=== PATIENT | female | born 1995 | race African-American/Black ===

== ENCOUNTER → 2019-07-19 16:54 | Outpatient (CLI) | payer BC, SELFPAY ==
[2019-07-19 18:10] LABS: Basophils # 0.1 K/mm3 (0-0.2); Basophils % 0.7 % (0.1-2.0); Eosinophils # 0.1 K/mm3 (0.0-0.4); Eosinophils % 1.6 % (0.1-12.0); Hematocrit 41.4 % (37.0-47.0); Hemoglobin 12.7 g/dL (12.2-16.2); Lymphocytes # 2.5 K/mm3 (0.7-4.5); Lymphocytes % 40.1 % (10-50); Mean Corpuscular HGB Conc 30.7 g/dL (31.8-35.4); Mean Corpuscular Hemoglobin 25.4 pg (27.0-31.2); Mean Corpuscular Volume 82.7 fl (81-99); Mean Platelet Volume 9.6 fl (7.4-10.4); Monocytes # 0.2 K/mm3 (0.1-1.0); Monocytes % 3.5 % (1.7-9.3); Neutrophils # 3.4 K/mm3 (1.8-7.8); Neutrophils % 54.1 % (37.0-80.0); Platelet Count 274 K/mm3 (142-424); Red Blood Count 5.01 M/mm3 (4.20-5.40); White Blood Count 6.3 K/mm3 (4.8-10.8)
[2019-07-19 18:57] LABS: Alanine Aminotransferase 16 U/L (9-52); Albumin Level 3.5 g/dL (3.4-5.0); Alkaline Phosphatase 70 U/L (46-116); Anion Gap 13.9 mEq/L (5-15); Aspartate Amino Transferase 16 U/L (15-37); Bilirubin,Total 0.2 mg/dL (0.2-1.0); Blood Urea Nitrogen 14 mg/dL (7-18); Calcium 9.1 mg/dL (8.5-10.1); Carbon Dioxide 26 mmol/L (21.0-32.0); Chloride 107 mmol/L (98-107); Chol/HDL Ratio 2.6 (1-3.5); Cholesterol 110 mg/dL (140-200); Creatinine,Serum 0.75 mg/dL (0.55-1.02); Estimated Glomerular Filt Rate 97 ml/min (>60); GFR (African American) 117 ML/MIN (>60); Globulin 3.6 gm/dl (1.3-3.2); Glucose 98 mg/dL (74-106); HDL Cholesterol 42 mg/dL (29-89); LDL Cholesterol 58 mg/dL (0-130); Potassium 3.9 mmoL/L (3.5-5.1); Sodium 143 mmol/L (137-145); T4 (Thyroxine) 6.9 ug/dl (4.7-13.3); Thyroid Stimulating Hormone 0.68 uIU/ml (0.358-3.740); Total Protein,Serum 7.1 g/dL (6.4-8.2); Triglycerides 48 mg/dL (30-200); VLDL Cholesterol 10 mg/dL (0-40)
[2019-07-21 10:28] LABS: Vitamin D 25 Hydroxy 10.3 ng/mL (30.0-100.0)
== END ==
PROVIDERS: Visit Provider Physician Assistant
DX: R63.5 Abnormal weight gain (principal); E55.9 Vitamin D deficiency, unspecified
CPT/HCPCS: 80053; 80061; 82652; 84436; 84443; 85025

== ENCOUNTER → 2019-12-28 15:24 | Outpatient (CLI) | payer BC, SELFPAY ==
[2019-12-30 14:44] LABS: Covid-19 Nasal PCR Sendout Lex Not Detected
== END ==
PROVIDERS: PCP Physician Assistant; Visit Provider Physician Assistant
DX: Z03.818 Encounter for observation for suspected exposure to other biological agents ruled out (principal)
CPT/HCPCS: U0004

== ENCOUNTER 2020-05-04 06:06 | Emergency (ER) | payer MEDICAID, SELFPAY ==
[2020-05-04 06:17] VITALS: BP 148/96; PULSE 64; RESP 18; TEMP 36.7; O2SAT 100; BMI 33.3
--- NOTE | 2020-05-04 06:26 | CT_ITS ---
PROCEDURE: CT ABDOMEN PELVIS W CON CLINICAL INDICATION: RUQ pain COMPARISON: No exams were available for comparison TECHNIQUE: IV Contrast: 75ML OPTIRAY 350 Oral Contrast none given Axial images obtained with sagittal and coronal reformats. All CT scans at the facility use one or more dose reduction, viz: automated exposure control, ma/kV adjustment per patient size (including targeted exams where dose is matched to indication, i.e. head), or iterative reconstruction technique. FINDINGS: Lower thorax: The lower lung wills are clear and there is no pleural fluid. There is mild generalized cardiomegaly. ABDOMEN: Liver: No masses or biliary dilatation. Gallbladder: The gallbladder is mildly distended and shows a slightly heterogenic appearance to the bile suggesting possible biliary sludge and or nonopaque stones. Consider follow-up ultrasound right upper quadrant for additional evaluation. Pancreas: No masses or peripancreatic fluid collections. Spleen: unremarkable Adrenals: unremarkable Kidneys/ureters: The kidneys are normal size and show symmetrical function both appearing normal. ABDOMEN & PELVIS: Stomach bowel: The stomach is moderately distended with ingested food particles and fluid but otherwise is normal. The small bowel is normal. The appendix is normal in caliber and partially air-filled. Moderate scattered stool and gas seen throughout the colon. There is a large amount stool in the rectum. Peritoneum: No abnormal fluid collections. No obvious inflammatory changes. No free air. Lymph nodes: No enlarged lymph nodes apparent. Vasculature: No evidence of abdominal aortic aneurysm. No retroperitoneal hemorrhage evident. Bones: No acute fracture PELVIS: Reproductive: The uterus is normal in size and in the midline. Bladder: Urinary bladder is partially decompressed, there is no free fluid in the pelvis. Appendix: Normal in caliber and partially air-filled. IMPRESSION: Somewhat abnormal appearing gallbladder suspect possibly nonopaque stones and biliary sludge and suggest follow-up ultrasound right upper quadrant. No other significant abdominal or pelvic pathology identified Dictated by: Dr. Mihir Figueroa MD 05/04/2020 09:23 Dr. Mihir Figueroa MD in [place] 05/04/2020 09:23
[2020-05-04 06:37] VITALS: BP 159/83; PULSE 68; O2SAT 99
[2020-05-04 06:40] LABS: Basophils # 0.1 K/mm3 (0-0.2); Basophils % 0.9 % (0.1-2.0); Eosinophils # 0.2 K/mm3 (0.0-0.4); Eosinophils % 2.9 % (0.1-12.0); Hemoglobin 14.1 g/dL (12.2-16.2); Lymphocytes # 3.2 K/mm3 (0.7-4.5); Lymphocytes % 50.3 % (10-50); Mean Corpuscular HGB Conc 31.4 g/dL (31.8-35.4); Mean Corpuscular Hemoglobin 25.7 pg (27.0-31.2); Mean Corpuscular Volume 81.8 fl (81-99); Mean Platelet Volume 8.6 fl (7.4-10.4); Monocytes # 0.3 K/mm3 (0.1-1.0); Monocytes % 4.3 % (1.7-9.3); Neutrophils # 2.6 K/mm3 (1.8-7.8); Neutrophils % 41.5 % (37.0-80.0); Platelet Count 303 K/mm3 (142-424); Red Cell Distribution Width 13.9 % (11.5-17.5); White Blood Count 6.3 K/mm3 (4.8-10.8)
[2020-05-04 06:42] LABS: MANUAL DIFFERENTIAL MANUAL DIFFERENTIAL (MANUAL DIFF)
[2020-05-04 06:45] LABS: Chloride 105 mmol/L (98-107); Potassium 3.6 mmoL/L (3.5-5.1); Sodium 142 mmol/L (136-145)
[2020-05-04 06:46] LABS: Microscopic, Urine URINE MICROSCOPIC (MICROSCOPIC)
[2020-05-04 06:47] LABS: Amylase 101 U/L (30-110)
[2020-05-04 06:48] LABS: Alanine Aminotransferase 22 U/L (12-78); Albumin Level 4.8 g/dl (3.5-5.0); Albumin/Globulin Ratio 1.2 (1.1-1.8); Alkaline Phosphatase 81 U/L (38-126); Anion Gap 13.6 mEq/L (5-15); Aspartate Amino Transferase 31 U/L (14-36); Bilirubin,Total 0.4 mg/dl (0.2-1.3); Blood Urea Nitrogen 16 mg/dl (7-17); Calcium 9.7 mg/dl (8.4-10.2); Carbon Dioxide 27 mmol/L (22.0-30.0); Creatinine Clearance Estimated 118 mL/min (50-200); Estimated Glomerular Filt Rate 69 ml/min (>60); GFR (African American) 83 ML/MIN (>60); Globulin 4.1 g/dL (1.3-3.2); Glucose 101 mg/dl (74-100); Lipase 100 U/L (23-300); Total Protein,Serum 8.9 g/dl (6.3-8.2)
[2020-05-04 06:50] LABS: Appearance,Urine CLEAR (Clear); Bilirubin,Urine Negative (Negative); Blood, Urine Negative (Negative); Color,Urine YELLOW (Yellow); Glucose,Urine (UA) Negative (Negative); Ketones,Urine Negative (Negative); Leukocyte Esterase,Urine Negative (Negative); Nitrate,Urine Negative (Negative); Protein,Urine Negative (Negative)
[2020-05-04 06:52] LABS: Urine Pregnancy, HCG Qual. Negative (Negative)
[2020-05-04 06:54] LABS: C-Reactive Protein 18.8 mg/L (0-4)
[2020-05-04 07:02] LABS: Squamous Epithelial Cell,Urine Occasional #/hpf (0-5)
--- NOTE | 2020-05-04 07:13 | HMH.EDNVD ---
ED Disposition Clinical Impression: COVID-19 virus IgG antibody detected, COVID-19 virus IgM antibody detected, Obesity (BMI 30.0-34.9) Abdominal pain Qualifiers: Abdominal location: right upper quadrant Qualified Code(s): R10.11 - Right upper quadrant pain Disposition: Home, Self-Care Condition on Discharge: Good Instructions: DI for Acute Abdomen Additional Instructions: discussed covid with pt and to call office thursday am Referrals: Megan Joy PA [Primary Care Provider] - - Critical Care Critical Care Time: No Attestation: On 05/04/20, the high probability of a clinically significant, sudden or life threatening deterioration of the following system(s) required my full and direct attention, intervention and personal management. The time I documented below is in addition to time spent performing reported procedures but includes the following listed in this critical care notation. Medical Decision Making - Medical Records Medical records reviewed: Yes: I reviewed the patient's medical records. - Nick Inquiry Pt receiving controlled substance: No Vital Signs: 05/04/20 06:17 05/04/20 06:37 05/04/20 07:41 Temperature 98.0 F Temperature Source Oral Pulse Rate [Right] 64 68 49 L Respiratory Rate 18 18 Blood Pressure [Right Arm] 148/96 H 159/83 H 139/71 Blood Pressure Mean [Right Arm] 113 108 93 Blood Pressure Source [Right Arm] Automatic Cuff Automatic Cuff Automatic Cuff Blood Pressure Position [Right Arm] Supine Supine Sitting 02 Sat by Pulse Oximetry 100 99 99 Oxygen Delivery Method Room Air Room Air - Lab Data Lab results reviewed: Yes: I reviewed the patient's lab results. Lab Results 05/04/20 06:15: Urine Color Yellow, Urine Appearance Clear, Urine pH 7.0, Ur Specific [place] 1.020, Urine Protein Negative, Urine Glucose (UA) Negative, Urine Ketones Negative, Urine Blood Negative, Urine Nitrate Negative, Urine Bilirubin Negative, Urine Urobilinogen 1.0, Ur Leukocyte Esterase Negative, Urine WBC 3-5, Ur Squamous Epith Cells Occasional 05/04/20 06:15: Urine HCG, Qual Negative 05/04/20 06:25: WBC 6.3, RBC 5.50 H, Hgb 14.1, Hct 45.0, MCV 81.8, MCH 25.7 L, MCHC 31.4 L, RDW 13.9, Plt Count 303, MPV 8.6, Neut % (Auto) 41.5, Lymph % (Auto) 50.3 H, [place] % (Auto) 4.3, Eos % (Auto) 2.9, Baso % (Auto) 0.9, Neut # (Auto) 2.6, Lymph # (Auto) 3.2, [place] # (Auto) 0.3, Eos # (Auto) 0.2, Baso # (Auto) 0.1, Total Counted 100, Neutrophils % (Manual) 54, Lymphocytes % (Manual) 40, Monocytes % (Manual) 6, Platelet Estimate Normal, RBC Morphology Normal, ESR 16 05/04/20 06:25: Sodium 142, Potassium 3.6, Chloride 105, Carbon Dioxide 27, Anion Gap 13.6, BUN 16, Creatinine 1.00, Estimated Creat Clear 118, Estimated GFR 69, Est GFR ( Amer) 83, Glucose 101 H, Calcium 9.7, Total Bilirubin 0.4, AST 31, ALT 22, Alkaline Phosphatase 81, C-Reactive Protein 18.8 H, Total Protein 8.9 H, Albumin 4.8, Globulin 4.1 H, Albumin/Globulin Ratio 1.2, Amylase 101, Lipase 100, Procalcitonin 0.032 05/04/20 06:25: SARS-CoV-2 IgG Ab (Rapid) Positive A, SARS-CoV-2 IgM Ab (Rapid) Positive A Result diagrams: 05/04/20 06:25 05/04/20 06:25 Orders (Tests/Meds): ED MEDICATIONS Generic Name Dose Route Start Last Admin Trade Name Freq PRN Reason Stop Dose Admin Sodium Chloride 8 ml 05/04/20 06:26 Sodium Chloride 0.9% 10ml Vial IV 06/03/20 06:25 NEEDED PRN dilute pepcid Discontinued Medications Generic Name Dose Route Start Last Admin Trade Name Freq PRN Reason Stop Dose Admin Dexamethasone Sodium Phosphate 10 mg 05/04/20 07:21 05/04/20 07:23 Dexamethasone 4mg/Ml 1ml Vial IV 05/04/20 07:22 10 mg ONCE ONE Administration Famotidine 20 mg 05/04/20 06:26 05/04/20 06:32 Famotidine 20mg/2ml Vial IV 05/04/20 06:27 20 mg ONCE ONE Administration Sodium Chloride 1,000 mls @ 999 mls/hr 05/04/20 06:30 05/04/20 06:33 Sod Chlor 0.9% 1000ml Bag IV 05/04/20 07:30 999 mls/hr .Q1H1M HUMZA
[2020-05-04 07:18] LABS: Coronavirus 19 IgG Antibody Positive (Negative); Coronavirus 19 IgM Antibody Positive (Negative)
--- NOTE | 2020-05-04 07:23 | XR_ITS ---
PROCEDURE: XR CHEST 2V CLINICAL HISTORY: IGM + COMPARISON: No exams were available for comparison FINDINGS: There is borderline generalized cardiomegaly. The lung wills are well expanded and appear clear of infiltrate. There is no pulmonary congestion there is no pleural fluid. Apparent metallic nipple jewelry bilaterally. IMPRESSION: Mild or borderline cardiomegaly, no acute chest pathology noted Dictated by: Dr. Mihir Figueroa MD 05/04/2020 07:52 Dr. Mihir Figueroa MD in [place] 05/04/2020 07:52
[2020-05-04 07:24] LABS: Procalcitonin 0.032 ng/mL (0.0-2.0)
[2020-05-04 07:26] LABS: Erythrocyte Sedimentation Rate 16 mm/hr (0-20)
[2020-05-04 07:30] LABS: Lymphocytes % 40 % (10-50); Monocytes % 6 % (2-9); Neutrophils % 54 % (42-76); Platelet Estimate Normal; RBC Morphology Normal; Total Cells Counted 100
[2020-05-04 07:41] VITALS: BP 139/71; PULSE 49; RESP 18; O2SAT 99
[2020-05-04 08:06] VITALS: BP 123/87; PULSE 85; RESP 12; TEMP 36.7; O2SAT 99
--- NOTE | 2020-05-04 13:43 | PC.NURSE ---
Attempted to call pt listed number 3 times with no answer, answering machine not available
--- NOTE | 2020-05-04 15:08 | PC.NURSE ---
Notified pt of her covid results
== END 2020-05-04 08:07 | disposition home or self-care (01) ==
PROVIDERS: Emergency Provider Emergency Medicine; PCP Physician Assistant
DX: U07.1 COVID-19 (principal); Z01.84 Encounter for antibody response examination
CPT/HCPCS: 36415; 71046; 74177; 80053; 81001; 81025; 82150; 83690; 84145; 85007; 85025; 85651; 86140; 86328; 96365; 96375; 99284; J2405; Q9967; U0003

== ENCOUNTER → 2021-09-30 09:10 | Outpatient (CLI) | payer BC, MEDICAID, SELFPAY ==
[2021-09-30 13:34] LABS: Basophils % 0.7 % (0.1-2.0); Eosinophils # 0.2 K/mm3 (0.0-0.4); Eosinophils % 3.2 % (0.1-12.0); Hematocrit 44.4 % (37.0-47.0); Hemoglobin 14.1 g/dL (12.2-16.2); Lymphocytes # 2.2 K/mm3 (0.7-4.5); Lymphocytes % 36.6 % (10-50); Mean Corpuscular HGB Conc 31.7 g/dL (31.8-35.4); Mean Corpuscular Hemoglobin 26.1 pg (27.0-31.2); Mean Corpuscular Volume 82.6 fl (81-99); Mean Platelet Volume 8.8 fl (7.4-10.4); Monocytes # 0.3 K/mm3 (0.1-1.0); Monocytes % 4.3 % (1.7-9.3); Neutrophils # 3.4 K/mm3 (1.8-7.8); Neutrophils % 55.2 % (37.0-80.0); Platelet Count 300 K/mm3 (142-424); Red Blood Count 5.38 M/mm3 (4.20-5.40); Red Cell Distribution Width 13.5 % (11.5-17.5); White Blood Count 6.1 K/mm3 (4.8-10.8)
[2021-09-30 13:48] LABS: Alanine Aminotransferase 15 U/L (12-78); Albumin Level 4.1 g/dl (3.5-5.0); Albumin/Globulin Ratio 1.3 (1.1-1.8); Alkaline Phosphatase 79 U/L (38-126); Anion Gap 9.1 mEq/L (5-15); Aspartate Amino Transferase 36 U/L (14-36); Bilirubin,Total 0.6 mg/dl (0.2-1.3); Blood Urea Nitrogen 14 mg/dl (7-17); Calcium 9.2 mg/dl (8.4-10.2); Carbon Dioxide 26 mmol/L (22.0-30.0); Chloride 107 mmol/L (98-107); Chol/HDL Ratio 2.6 (1-3.5); Cholesterol 144 mg/dl (140-200); Estimated Glomerular Filt Rate 122 ml/min (>60); GFR (African American) 147 ML/MIN (>60); Globulin 3.2 g/dL (1.3-3.2); Glucose 89 mg/dl (74-100); HDL Cholesterol 55 mg/dl (40-60); Potassium 4.1 mmoL/L (3.5-5.1); Sodium 138 mmol/L (136-145); Total Protein,Serum 7.3 g/dl (6.3-8.2); Triglycerides 44 mg/dl (30-150); VLDL Cholesterol 9 mg/dL (0-40)
[2021-09-30 14:03] LABS: 25-OH Vitamin D, Total 13.7 ng/mL (30-100)
[2021-09-30 14:18] LABS: Thyroid Stimulating Hormone 1.62 uIU/mL (0.465-4.68)
[2021-09-30 14:37] LABS: Vitamin B12 491 pg/mL (239-931)
== END ==
PROVIDERS: PCP Physician Assistant; Visit Provider Physician Assistant
DX: R63.5 Abnormal weight gain (principal); E55.9 Vitamin D deficiency, unspecified; R53.83 Other fatigue; Z68.35 Body mass index [BMI] 35.0-35.9, adult
CPT/HCPCS: 80053; 80061; 82306; 82607; 84443; 85025

== ENCOUNTER → 2021-11-26 08:43 | Outpatient (CLI) | payer BC, MEDICAID, SELFPAY ==
--- NOTE | 2021-11-26 08:43 | US_ITS ---
FINAL REPORT CLINICAL HISTORY: abdomen pain FINDINGS: Sonographic images of the right upper quadrant were obtained. The pancreas is partially obscured.The liver has an unremarkable appearance.The gallbladder demonstrates multiple gallstones. The gallbladder wall measures 2 mm and is normal.There is no evidence of biliary ductal dilatation.The common duct measures 2 mm. Limited images of the right kidney are unremarkable. IMPRESSION: Cholelithiasis. Reviewed, Interpreted and Dictated by Jese Ferrara III, MD Transcribed by Yahaira Moreno Authenticated and [facility]
== END ==
PROVIDERS: PCP Physician Assistant; Visit Provider Physician Assistant
DX: R10.11 Right upper quadrant pain (principal)
CPT/HCPCS: 76705

== ENCOUNTER → 2022-01-04 11:30 | Outpatient (CLI) | payer BC, MEDICAID, SELFPAY ==
[2022-01-04 14:05] LABS: Basophils # 0.1 K/mm3 (0-0.2); Basophils % 1.2 % (0.1-2.0); Eosinophils # 0.2 K/mm3 (0.0-0.4); Eosinophils % 2.9 % (0.1-12.0); Hematocrit 41.3 % (37.0-47.0); Hemoglobin 13.8 g/dL (12.2-16.2); Lymphocytes % 36.7 % (10-50); Mean Corpuscular HGB Conc 33.4 g/dL (31.8-35.4); Mean Corpuscular Hemoglobin 26.7 pg (27.0-31.2); Mean Corpuscular Volume 79.9 fl (81-99); Mean Platelet Volume 9.4 fl (7.4-10.4); Monocytes # 0.5 K/mm3 (0.1-1.0); Monocytes % 6.2 % (1.7-9.3); Neutrophils # 4.3 K/mm3 (1.8-7.8); Platelet Count 292 K/mm3 (142-424); Red Blood Count 5.17 M/mm3 (4.20-5.40); Red Cell Distribution Width 13.6 % (11.5-17.5); White Blood Count 8.1 K/mm3 (4.8-10.8)
[2022-01-04 14:25] LABS: Alanine Aminotransferase 16 U/L (12-78); Albumin/Globulin Ratio 1.3 (1.1-1.8); Alkaline Phosphatase 90 U/L (38-126); Anion Gap 10.9 mEq/L (5-15); Aspartate Amino Transferase 29 U/L (14-36); Bilirubin,Total 0.4 mg/dl (0.2-1.3); Blood Urea Nitrogen 14 mg/dl (7-17); Calcium 9.3 mg/dl (8.4-10.2); Carbon Dioxide 23 mmol/L (22.0-30.0); Chloride 108 mmol/L (98-107); Estimated Glomerular Filt Rate 102 ml/min (>60); GFR (African American) 123 ML/MIN (>60); Globulin 3.2 g/dL (1.3-3.2); Glucose 88 mg/dl (74-100); Potassium 3.9 mmoL/L (3.5-5.1); Sodium 138 mmol/L (136-145); Total Protein,Serum 7.2 g/dl (6.3-8.2)
== END ==
PROVIDERS: PCP Physician Assistant; Visit Provider Surgery
DX: Z01.812 Encounter for preprocedural laboratory examination (principal); Z20.822 Contact with and (suspected) exposure to COVID-19; K80.20 Calculus of gallbladder without cholecystitis without obstruction
CPT/HCPCS: 36415; 80053; 85025; C9803; U0003; U0005

== ENCOUNTER 2022-01-06 10:03 | Day surgery (SDC) | payer BC, MEDICAID, SELFPAY ==
[2022-01-02 13:07] VITALS: BMI 30.1
[2022-01-06] VITALS (10 sets, daily range): BP systolic 118–149; BP diastolic 75–102; PULSE 55–73; RESP 12–18; TEMP 36.1–43; O2SAT 93–98
[2022-01-06 10:25] LABS: Urine Pregnancy, HCG Qual. Negative (Negative)
--- NOTE | 2022-01-06 11:43 | HMH.ANESCL ---
[facility] Anesthesia Checklist - Patient Identification Patient Identification: Arm Band - Structural Data Admitted From: Home Planned Operative Procedure/s: melidaKarina beaver Consent for Planned Operative Procedure(s) Verified: Yes - NPO Status Verified Time NPO: 00:00 - Additional verifications Anesthesia Reactions: Yes (nausea) Hx Blood Transfusions: No Blood Transfusion Reaction: No - Airway Assessment C-Spine Mobility Assessed: Yes TMJ Mobility Assessed: Yes Dentition: Good Dentition - Neurological Assessment Hx Seizures: No Numbness or tingling in extremities: No - Anesthesia Plan Anesthesia Risk discussed: Yes Anesthesia Plan: Verified ASA Class: I Anesthesia Type: General [facility] History I have reviewed the patient's past medical history: Yes Medical History: Denies:: Cancer, Diabetes Mellitus Type 1, Diabetes Mellitus Type 2, Internal Pacemaker, MRSA, Seizures *Have you ever received a pneumonia vaccine?: No *Have you received a flu vaccine this season?: No Other Medical History: Denies: Blood Transfusion Reaction Anesthesia experience/problems:: None Laterality Cases: Bilateral: Tonsillectomy Other Surgeries: Yes: . No: Pacemaker Amputation: No Fractures: No - *Social History Last grade of school completed: High school graduate Smoking Status: Never smoker Alcohol Intake: current Alcohol Intake Frequency:: holidays/special occasions only Substance Use Type: denies use *Occupational Status:: employed Housing: house Household Members: children *Travel in the last 8 weeks: None Family Hx:: No significant family history
--- NOTE | 2022-01-06 11:45 | HMH.ANESCL ---
[facility] Anesthesia Checklist - Patient Identification Patient Identification: Arm Band - Structural Data Admitted From: Home Planned Operative Procedure/s: Josh beaver Consent for Planned Operative Procedure(s) Verified: Yes - NPO Status Verified Time NPO: 00:00 - Additional verifications Anesthesia Reactions: Yes (nausea) Hx Blood Transfusions: No Blood Transfusion Reaction: No - Airway Assessment C-Spine Mobility Assessed: Yes TMJ Mobility Assessed: Yes Dentition: Good Dentition - Neurological Assessment Level of Consciousness: Awake Hx Seizures: No Numbness or tingling in extremities: No - Anesthesia Plan Anesthesia Risk discussed: Yes Anesthesia Plan: Verified ASA Class: I Anesthesia Type: General [facility] History I have reviewed the patient's past medical history: Yes Medical History: Denies:: Cancer, Diabetes Mellitus Type 1, Diabetes Mellitus Type 2, Internal Pacemaker, MRSA, Seizures *Have you ever received a pneumonia vaccine?: No *Have you received a flu vaccine this season?: No Other Medical History: Denies: Blood Transfusion Reaction Anesthesia experience/problems:: None Laterality Cases: Bilateral: Tonsillectomy Other Surgeries: Yes: . No: Pacemaker Amputation: No Fractures: No - *Social History Last grade of school completed: High school graduate Smoking Status: Never smoker Alcohol Intake: current Alcohol Intake Frequency:: holidays/special occasions only Substance Use Type: denies use *Occupational Status:: employed Housing: house Household Members: children *Travel in the last 8 weeks: None Family Hx:: No significant family history
--- NOTE | 2022-01-06 12:20 | HMH.OPNOTE ---
Date of procedure: 01/06/22 Pre-op Diagnosis:: Symptomatic gallstones Post-op Diagnosis:: Same Procedure performed:: Laparoscopic cholecystectomy Surgeon:: Jese Unger MD BILINGUAL OFFICE ASSISTANT:: Loretta Garcia Anesthesia: GETKaran Estimated blood loss (mL): 15 Clinical Note:: Patient is a very pleasant 26-year-old female referred by Megan Joy for gallbladder. She states that she had first noticed some problems in April 2020 with symptoms consistent with biliary colic in hindsight. She also was diagnosed with COVID at that time. It was recommended she undergo gallbladder work-up. Ultimately she has had some additional attacks described as acute onset of diffuse abdominal pain. This does occasionally doubles her over. It seems to occur spontaneously and not necessarily related to eating. It now has occurred about every several days. She underwent gallbladder ultrasound which reveals numerous gallstones. She has normal common bile duct. 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 She was seen and examined in the office. Options were discussed. She wished to pursue cholecystectomy. Interestingly the patient had been under the impression in the preoperative area that she would undergo removal of the gallstones. It was explained to the patient that surgery involves movement of the gallstones and gallbladder. Operative findings:: She had a somewhat distended gallbladder with omental adhesions and numerous gallstones. There were adhesions of the duodenum to the neck of the gallbladder. Operative note:: Patient was taken to the operating room. She was positioned in a supine position. General anesthesia was induced via endotracheal tube. Abdomen was prepped and draped in the standard surgical fashion. Subumbilical skin incision was made and while performing abdominal wall lift Veress needle was inserted. CO2 pneumoperitoneum was achieved to 15 mmHg. 11 mm optical trocar was inserted at the umbilicus. Intraperitoneal contents were visualized. She was positioned in reverse Trendelenburg left side down. A couple of 5 mm trochars were inserted in the right upper abdomen. 10 mm trocar was inserted in the epigastrium. Gallbladder was identified and grasped and retracted anteriorly and superiorly over the dome of the liver. There were omental adhesions to the gallbladder which were taken down using blunt dissection. The duodenum was adherent to the gallbladder and this was carefully taken down using blunt dissection. Infundibulum/Laird's pouch of the gallbladder was retracted anterior laterally. Blunt dissection was carried out at the neck of the gallbladder bluntly incising the visceral peritoneum. The cystic duct and cystic artery were clearly identified and the critical view of safety. The cystic duct was isolated, multiply clipped, and sharply divided. Cystic artery was carefully coagulated with LIAT ultrasonic harmonic ty. Gallbladder was dissected free from the liver in a retrograde fashion using LIAT ultrasonic harmonic ty. Gallbladder was placed within an Endo Catch retrieval device and removed from the peritoneal cavity via the umbilical trocar site which required some extension of the fascial incision for delivery as there were multiple gallstones and the gallbladder was rather distended. Gallbladder fossa was inspected for hemostasis which was assured. Trochars were removed as CO2 pneumoperitoneum was evacuated. Fascia at the umbilicus was closed with several interrupted 0 Vicryl sutures. Local anesthetic was infiltrated in all incisions. Skin incisions were closed with 4 Monocryl in subcuticular fashion. Steri-Strips and dressings were applied. Condition: stable Disposition: PACU Specimens:: Gallbladder and contents Complications:: None immediately apparent
--- NOTE | 2022-01-06 12:36 | HMH.ANESI ---
[facility] Anesthesia Record Part I Intake, IV Amount: 900 Estimated blood loss (mL): 20 Urine output (mL): 0 Blood Pressure: 136/84 SaO2: 96 Pulse Rate: 70 Respiratory Rate: 13 Temperature: 98 F Patient is:: Drowsy Stable to PACU at:: 12:33
--- NOTE | 2022-01-06 17:17 | P.PN_ITS ---
[facility] Anesthesia Record Part II Discharge Time: 13:03 Destination: Home PACU nurse assessment reviewed?: Yes Patient Condition:: Good Anesthesia Complications:: None Swallowing reflex intact?: Yes Cyanosis?: No Blood Pressure: 133/77 Pulse Rate: 66 Temperature: 97.0 F Mental Status: Alert & Oriented Pain level:: 0 Nausea and/or vomitting:: None Intake, IV Amount: 0
== END 2022-01-06 13:33 | disposition home or self-care (01) ==
LOC: OR 10:04
PROVIDERS: PCP Physician Assistant; Visit Provider Surgery
PROC: 0FT44ZZ Resection of Gallbladder, Percutaneous Endoscopic Approach (ICD-10-PCS; CPT 47562; principal; 2022-01-06 11:30)
DX: Z79.899 Other long term (current) drug therapy; K80.20 Calculus of gallbladder without cholecystitis without obstruction
CPT/HCPCS: 47562; 81025; 96374; J0131; J2405

== ENCOUNTER 2022-04-10 16:26 | Emergency (ER) | payer BC, MEDICAID, SELFPAY ==
[2022-04-10 17:30] VITALS: BP 127/95; PULSE 90; RESP 20; TEMP 37.5; O2SAT 100; BMI 27.8
[2022-04-10 17:36] LABS: UTC Influenza A Antigen Negative (Negative); UTC Influenza B Antigen Negative (Negative)
--- NOTE | 2022-04-10 17:52 | EXP.UTC ---
Discharge Plan Disposition Patient Disposition: Home, Self-Care Condition: Good Prescriptions Prescriptions: No Action phentermine [Adipex-P] 37.5 mg tablet 37.5 mg PO DAILY Rx Instructions: must administer 30 minutes before or 1-2 hours after breakfast Referrals Follow up/Referrals: Megan Joy PA [Primary Care Provider] - See instructions Activity Restrictions/Add. Instructions Additional Instructions/Restrictions: *Monitor Temp, Over the counter Motrin or Tylenol as directed/as needed Tylenol every 4 hours and Motrin every 6 hours (as long as your family doctor has told you that you can take it) for fever or pain. and straight to ER if unable to lower temp less than 101.0 after medication given *Warm salt water gargles may help to soothe the throat *Throat Lozenges? *Warm fluids like tea with honey may help to soothe the throat? *Sleep elevated *Humidifier/Vaporizer Over the counter cough and cold medication like theraflu may help with nasal congestion Follow up IMMEDIATELY for new or worsening symptoms or no Noticeable improvement over the next 48-72 hours. 911 for difficulty breathing or swallowing Clinical Impressions Clinical Impression: Viral upper respiratory tract infection Instructions Patient Instructions: DI for Viral Upper Respiratory Infection -- Adult Discharge ED Provider: Batsheva Mars [facility] General Stated complaint: TESTED FOR THE FLU AND COVID Mode of Arrival: Ambulatory Source of Information: Patient Limitations: No Limitations Time Seen by Provider: 04/10/22 17:52 Description of Symptoms (Recalled from Triage Doc. by RN): PATIENT C/O COUGH, CONGESTION AND BODY ACHES X 2 DAYS HEENT Symptoms (Recalled from RN notes): No Resp Symptoms (Recalled from RN notes): Yes Skin Symptoms (Recalled from RN notes): No MS Symptoms (Recalled from RN notes): No Functional Status (Recalled from RN notes): WNL History of Present Illness Provider Complaint: Patient states that she was around her nephew that tested positive for the flu States that she has been having body aches, chills and nasal congestion and she was worried that she may have flu and COVID states that her child is sick too Related Data Home Medications Medication Instructions Recorded Confirmed phentermine 37.5 mg tablet 37.5 mg PO DAILY Weight loss 11/03/22 11/03/22 (Adipex-P) Allergies Allergy/AdvReac Type Severity Reaction Status Date / Time No Known Allergies Allergy Verified 02/03/22 15:27 Worker's Comp Is this a Worker's Comp case?: No PFSH PFSH Surgical History (Updated 04/10/22 @ 17:48 by Dinora Almaraz RN) History of section History of cholecystectomy History of tonsillectomy Social History (Updated 04/10/22 @ 17:48 by Dinora Almaraz RN) Smoking Status: Never smoker second hand exposure: No alcohol intake: current substance use type: denies use current occupational status: employed Travel in the last 8 weeks: None household members: children housing: house current occupation: [employer] current occupational exposures/hazards: No caffeine: Yes ROS Obtained: Yes All systems reviewed & no additional complaints except as documented and Yes Systems reviewed as appropriate & no additional complaints except as documented Constitutional Constitutional: Reports system reviewed and no additional complaints, except as documented, Reports as per HPI, Reports body ache, Reports chills and Reports fever(s) ENT Ears, Nose, Mouth, and Throat: Reports system reviewed and no additional complaints, except as documented, Reports as per HPI, Reports nasal congestion and Reports nasal discharge Cardiovascular Cardiovascular: Reports system reviewed and no additional complaints, except as documented and Reports as per HPI Respiratory Respiratory: Reports system reviewed and no additional complaints, except as documented and Reports as per
[2022-04-10 18:03] VITALS: BP 127/95; PULSE 90; RESP 20; TEMP 37.5; O2SAT 100
[2022-04-10 18:13] LABS: Adenovirus,PCR Not Detected (NotDetected); Bordetella Pertussis Not Detected (NotDetected); Chlamydophila Pneumoniae, PCR Not Detected (NotDetected); Coronavirus 19, PCR Not Detected (NotDetected); Coronavirus 229E Not Detected (NotDetected); Coronavirus NL63 Not Detected (NotDetected); Coronavirus OC43 Not Detected (NotDetected); Coronovirus HKU1,PCR Not Detected (NotDetected); Human Metapneumovirus Not Detected (NotDetected); Influenza A, PCR Not Detected (NotDetected); Influenza AH1, PCR Not Detected (NotDetected); Influenza AH3,PCR Not Detected (NotDetected); Influenza B, PCR Not Detected (NotDetected); Mycoplasma Pneumoniae, PCR Not Detected (NotDetected); Parainfluenza 1, PCR Not Detected (NotDetected); Parainfluenza 2, PCR Not Detected (NotDetected); Parainfluenza 3, PCR Not Detected (NotDetected); Parainfluenza 4, PCR Not Detected (NotDetected); Respiratory Syncytial Virus Not Detected (NotDetected); Rhinovirus/Enterovirus Not Detected (NotDetected)
[2022-04-11 08:29] LABS: Influenza AH1, 2009 Detected (NotDetected)
== END 2022-04-10 18:05 | disposition home or self-care (01) ==
PROVIDERS: Emergency Provider Nurse Practitioner; PCP Physician Assistant
DX: J10.1 Influenza due to other identified influenza virus with other respiratory manifestations (principal)
CPT/HCPCS: 87581; 87632; 87798; 87804; 99212; C9803; G0463; U0003; U0005